=== PATIENT | female | born 1980 | race Caucasian/White ===

== ENCOUNTER 2023-06-06 23:26 | Emergency (ER) | payer MEDICAID ==
[~2023-06-06] VITALS: Ht 149.9 cm; Wt 71.0 kg
[~2023-06-06 23:26] MED LIST: ALPR1TAB2 PO; NOR10T PO; ONDA-144 PO; TEMA15CA PO
[2023-06-06 23:46] VITALS: BP 124/69; RESP 18; O2SAT 96
[2023-06-07] MEDS ORDERED: HYDR50CA PO (01:57)
[2023-06-07] MEDS: ALPRAZolam 0.5 MG TAB PO ONE (01:58)
[2023-06-07 02:09] VITALS: PULSE 75
== END 2023-06-07 02:07 | disposition home or self-care (01) ==
LOC: ER 23:26
DX: F41.0 Panic disorder [episodic paroxysmal anxiety] (principal); Z87.442 Personal history of urinary calculi; Z98.890 Other specified postprocedural states; Z79.899 Other long term (current) drug therapy
CPT/HCPCS: 93005